=== PATIENT | female | born 1965 | race Caucasian/White ===

== ENCOUNTER → 2017-03-20 | Outpatient (CLI) | payer BC ==
--- NOTE | 2017-03-21 11:40 | MM ---
Reason for exam: screening (asymptomatic). Last mammogram was performed 1 year and 6 months ago. History: Patient is postmenopausal. Physical Findings: A clinical breast exam by your physician is recommended on an annual basis and results should be correlated with mammographic findings. MG Screening Mammo w CAD Bilateral CC and MLO view(s) were taken. Prior study comparison: October 03, 2015, bilateral MG screening mammo w CAD. October 11, 2013, bilateral digital screening mammo w/CAD. The breast tissue is heterogeneously dense. This may lower the sensitivity of mammography. No significant changes when compared with prior studies. ASSESSMENT: Negative, BI-RAD 1 RECOMMENDATION: Routine screening mammogram of both breasts in 1 year.
== END | disposition home or self-care (01) ==
LOC: RADMAMWWP 15:43
PROVIDERS: ATTEND Internal Medicine
DX: Z12.31 Encounter for screening mammogram for malignant neoplasm of breast (principal)

== ENCOUNTER → 2021-02-13 | Outpatient (CLI) | payer OTHER ==
--- NOTE | 2021-02-14 13:52 | MM ---
Reason for exam: screening (asymptomatic). Last mammogram was performed 3 years and 11 months ago. History: Patient is postmenopausal. Took hormonal contraceptives for 11 years. Physical Findings: A clinical breast exam by your physician is recommended on an annual basis and results should be correlated with mammographic findings. MG 3D Screening Mammo W/Cad Bilateral CC and MLO view(s) were taken. Prior study comparison: March 20, 2017, bilateral MG screening mammo w CAD. October 03, 2015, bilateral MG screening mammo w CAD. The breast tissue is heterogeneously dense. This may lower the sensitivity of mammography. No significant changes when compared with prior studies. ASSESSMENT: Negative, BI-RAD 1 RECOMMENDATION: Routine screening mammogram of both breasts in 1 year.
== END | disposition home or self-care (01) ==
LOC: RADMAMWWP 16:37
PROVIDERS: ATTEND Internal Medicine
DX: Z12.31 Encounter for screening mammogram for malignant neoplasm of breast (principal); Z78.0 Asymptomatic menopausal state
CPT/HCPCS: 77063; 77067

== ENCOUNTER → 2022-07-02 | Outpatient (CLI) | payer OTHER ==
--- NOTE | 2022-07-02 09:16 | US ---
EXAMINATION TYPE: US pelvis complete transvag DATE OF EXAM: 07/02/2022 COMPARISON: NONE CLINICAL HISTORY: 56-year-old female Pain TECHNIQUE: Transvaginal (TV) and Transabdominal (TA) . FINDINGS: EXAM MEASUREMENTS: Uterus: 8.5 x 2.7 x 4.2 cm Endometrial Stripe: .7 cm 1. Uterus: Anteverted and otherwise wnl there is some tiny cervical nabothian cysts are noted. 2. Endometrium: Borderline thickening. 3. Right Ovary: Obscured by overlying bowel gas 4. Left Ovary: Obscured by overlying bowel gas 5. Bilateral Adnexa: wnl 6. Posterior cul-de-sac: wnl IMPRESSION: 1. Borderline thickening of the endometrial stripe (7 mm) for a postmenopausal female. This may be no rmal in the absence of postmenopausal bleeding. Consider follow-up in 3 months to reassess. 2. Unable to visualize either ovary.
--- NOTE | 2022-07-02 09:28 | US ---
EXAMINATION TYPE: US abdomen complete DATE OF EXAM: 07/02/2022 COMPARISON: NONE CLINICAL HISTORY: 56-year-old female R10.2 PELVIC AND PERINEAL PAIN. TECHNIQUE: Multiple sonographic images of the abdomen are obtained. FINDINGS: EXAM MEASUREMENTS: Liver Length: 13.8 cm Gallbladder Wall: .3 cm CBD: .3 cm Spleen: 11.1 cm Right Kidney: 10.8 x 3.9 x 4.3 cm Left Kidney: 10.2 x 4.8 x 4.0 cm Pancreas: Only a small portion of the pancreatic neck is seen. The remainder is obscured by bowel ga s shadowing. Liver: Echogenic with increased attenuation. No focal lesion is seen. Gallbladder: No stones seen. No abnormal distention, wall thickening, or surrounding fluid. Evidence for sonographic Valadez's sign: No CBD: wnl Spleen: wnl Right Kidney: wnl Left Kidney: wnl Upper IVC: wnl Abd Aorta: wnl IMPRESSION: 1. At least moderate hepatic steatosis. Correlate with LFTs, lipid profile, and patient risk factors. 2. No gallstones or biliary ductal dilatation.
== END | disposition home or self-care (01) ==
LOC: RADUSWWP 07:59
PROVIDERS: ATTEND Internal Medicine
DX: K76.0 Fatty (change of) liver, not elsewhere classified (principal); R93.89 Abnormal findings on diagnostic imaging of other specified body structures; Z78.0 Asymptomatic menopausal state
CPT/HCPCS: 76700; 76830; 76856

== ENCOUNTER → 2022-07-02 | Outpatient (CLI) | payer OTHER ==
--- NOTE | 2022-07-03 07:36 | MM ---
Reason for Exam: Screening (asymptomatic). Last mammogram was performed 1 year(s) and 5 month(s) ago. Patient History: Menarche at age 8. First Full-Term at age 27. Postmenopausal. Patient has history of breast feeding. Patient used Hormonal Contraceptives for 11 years. Risk Values: Mary 5 year model risk: 1.6%. NCI Lifetime model risk: 9.3%. Prior Study Comparison: 10/03/2015 Bilateral Screening Mammogram, [facility]. 03/20/2017 Bilateral Screening Mammogram, [facility]. 02/13/2021 Bilateral Screening Mammogram, [facility]. Tissue Density: The breast tissue is heterogeneously dense. This may lower the sensitivity of mammography. Findings: Analyzed By CAD. There is no suspicious group of microcalcifications or new suspicious mass in either breast. Overall Assessment: Negative, BI-RAD 1 Management: Screening Mammogram of both breasts in 1 year. A clinical breast exam by your physician is recommended on an annual basis and results should be correlated with mammographic findings. [facility] will attempt to contact patient to return for supplemental views and ultrasound if indicated. Electronically signed and approved by: William Bansal DO
== END | disposition home or self-care (01) ==
LOC: RADMAMWWP 07:43
PROVIDERS: ATTEND Internal Medicine
DX: Z12.31 Encounter for screening mammogram for malignant neoplasm of breast (principal); Z78.0 Asymptomatic menopausal state
CPT/HCPCS: 77063; 77067

== ENCOUNTER → 2022-11-12 | Outpatient (CLI) | payer OTHER ==
--- NOTE | 2022-11-12 16:22 | XR ---
EXAMINATION TYPE: XR foot complete RT DATE OF EXAM: 11/12/2022 3:46 PM INDICATION: Patient age:Female; 57 years old; Reason for study: [id number] RT FOOT PAIN; [facility]. COMPARISON: None TECHNIQUE: The right foot was examined in the AP, oblique, and lateral projections. FINDINGS: No evidence of any acute osseous pathology. No evidence of soft tissue swelling. Joints are preserve d. Scattered joint space narrowing osteophytes of the joints of the foot. Calcaneal plantar spurring and Achilles enthesophyte is present. Accessory ossicle next to the cuboid . IMPRESSION: No evidence of acute fracture. Calcaneal plantar spurring correlate for plantar fasciitis.
== END | disposition home or self-care (01) ==
LOC: RADXRYALE 15:24
PROVIDERS: ATTEND Internal Medicine
DX: M77.31 Calcaneal spur, right foot (principal); M72.2 Plantar fascial fibromatosis

== ENCOUNTER → 2024-01-09 | Outpatient (CLI) | payer OTHER ==
--- NOTE | 2024-01-11 12:57 | MM ---
Reason for Exam: Screening (asymptomatic). Last mammogram was performed 1 year(s) and 6 month(s) ago. Patient History: Menarche at age 8. First Full-Term at age 27. Postmenopausal. Patient has history of breast feeding. Patient used Hormonal Contraceptives for 11 years. Risk Values: Mary 5 year model risk: 1.8%. NCI Lifetime model risk: 8.9%. Prior Study Comparison: 10/03/2015 Bilateral Screening Mammogram, [facility]. 03/20/2017 Bilateral Screening Mammogram, [facility]. 02/13/2021 Bilateral Screening Mammogram, [facility]. 07/02/2022 Bilateral MG 3D screening mammo w/cad, [facility]. Tissue Density: The breasts are heterogeneously dense, which may obscure small masses. Findings: Analyzed By CAD. The pattern is symmetrical. No suspicious groups of microcalcifications, spiculated or lobular masses, architectural distortion or other secondary signs of malignancy are mammographically apparent. Overall Assessment: Benign, BI-RAD 2 Management: Screening Mammogram of both breasts in 1 year. A negative mammogram report should not preclude additional follow up of suspicious palpable abnormalities. Patient should continue monthly self breast exam. A clinical breast exam by your physician is recommended on an annual basis and results should be correlated with mammographic findings. Note on Mary scores and lifetime risk: 1. A Amry score greater than 3% is considered moderate risk. If this is the case, consider specialist referral to assess eligibility for a risk reducing agent. 2. If overall lifetime risk for the development of breast cancer is 20% or higher, the patient may qualify for future screening with alternating mammogram and breast MRI. Electronically signed and approved by: Kashmir Caputo D.O. Radiologis
== END | disposition home or self-care (01) ==
LOC: RADMAMWWP 07:44
PROVIDERS: ATTEND Internal Medicine
DX: Z12.31 Encounter for screening mammogram for malignant neoplasm of breast (principal); R92.333 Mammographic heterogeneous density, bilateral breasts; Z78.0 Asymptomatic menopausal state
CPT/HCPCS: 77063; 77067

== ENCOUNTER → 2024-04-23 | Day surgery (SDC) | payer OTHER ==
[~2024-04-23] MED LIST: PROPOFOL 10 MG/ML 20 ML VIAL IV ONE
[2024-04-23] MEDS: IV FLUID CONTINUATION 1,000 ML IV ONE (08:08)
[2024-04-23] MEDS: LACTATED RINGERS 1,000 ML IV SCH (08:08)
[2024-04-23 08:12] VITALS: TEMP 98.2
--- NOTE | 2024-04-23 08:50 | P.PCN ---
Date of Procedure: 04/23/24 Procedure(s) Performed: BRIEF HISTORY: Patient is a 58-year-old pleasant white female scheduled for an elective colonoscopy as a part of screening for colon cancer. PROCEDURE PERFORMED: Colonoscopy. PREOPERATIVE DIAGNOSIS: Screening for colon cancer. IV sedation per Anesthesia. PROCEDURE: After informed consent was obtained, the patient, was brought into the endoscopy unit. IV sedation was administered by Anesthesia under continuous monitoring. Digital rectal examination was normal. Initially the Olympus CF-160 flexible video colonoscope was then inserted in the rectum, gradually advanced into the cecum without any difficulty. Careful examination was performed as the scope was gradually being withdrawn. Ileocecal valve and the appendiceal orifice were visualized and appeared normal. Prep was excellent. Mucosa of the cecum, ascending colon, transverse colon, descending colon, sigmoid colon, and rectum appeared normal. Katter sigmoid diverticulosis. Retroflexion was performed in the rectum and no lesions were seen. The patient tolerated the procedure well. IMPRESSION: Normal-appearing colon from rectum to cecum no evidence of colorectal neoplasia. Scattered sigmoid diverticulosis. RECOMMENDATIONS: Findings of this examination were discussed with the patient as well as her family. She was advised to have a repeat screening colonoscopy in 10 years..
[2024-04-23 08:55] VITALS: RESP 16
[2024-04-23 09:08] VITALS: BP 133/73; PULSE 76
== END ==
LOC: ORWHC2ENDO 07:30
PROVIDERS: ATTEND Internal Medicine Gastroenterology
DX: Z12.11 Encounter for screening for malignant neoplasm of colon (principal); K57.30 Diverticulosis of large intestine without perforation or abscess without bleeding; F32.A Depression, unspecified; G89.4 Chronic pain syndrome; Z88.0 Allergy status to penicillin
CPT/HCPCS: 45378; J2704

== ENCOUNTER → 2024-05-06 | Outpatient (CLI) | payer OTHER ==
--- NOTE | 2024-05-06 23:08 | MR ---
EXAMINATION TYPE: MR shoulder RT wo con DATE OF EXAM: 05/06/2024 COMPARISON: None. HISTORY: Right shoulder pain, limited ROM, injured Sept 2023. TECHNIQUE: Multiplanar, multisequence imaging of the right shoulder is performed without contrast. FINDINGS: Rotator Cuff: Full-thickness retracted tears of the supraspinatus and infraspinatus tendons with stum p retraction to the level of the distal clavicle. Acromioclavicular Joint: Moderate narrowing with mild to moderate capsular hypertrophy Mild spurring. Glenohumeral Joint: Large size joint effusion. High positioned humeral head. Narrowing is identified. No significant spurring. [place]-Sachs type deformity is felt present. Labrum: The labrum appears grossly intact given limitation of non-arthrogram study. Biceps Tendon: The long head of biceps is in normal location within bicipital groove. Bone marrow signal: A few tiny subchondral cyst involving the superolateral aspect of the humeral hea d. Other: No additional significant abnormality is appreciated. IMPRESSION: Full-thickness retracted tears of supraspinatus and infraspinatus tendons with large glenohumeral kailyn nt effusion. High positioned humeral head raises concern for underlying instability. [facility], Workstation: [email or web address], 05/06/2024 11:05 PM
== END | disposition home or self-care (01) ==
LOC: RADMRIMAIN 16:07
PROVIDERS: ATTEND Orthopaedic Surgery
DX: S46.091D Other injury of muscle(s) and tendon(s) of the rotator cuff of right shoulder, subsequent encounter (principal); M19.011 Primary osteoarthritis, right shoulder; M75.51 Bursitis of right shoulder; M40.202 Unspecified kyphosis, cervical region; M48.02 Spinal stenosis, cervical region; M75.121 Complete rotator cuff tear or rupture of right shoulder, not specified as traumatic

== ENCOUNTER → 2024-05-25 | Outpatient (CLI) | payer OTHER ==
--- NOTE | 2024-05-25 13:49 | MR ---
EXAMINATION TYPE: MR cervical spine wo con DATE OF EXAM: 05/25/2024 12:46 PM COMPARISON: None. CLINICAL INDICATION: Female, 58 years old with history of M54.12 Cervicalgia, Neck pain with RUE radi culopathy. TECHNIQUE: Multiplanar, multisequence images of the cervical spine were acquired without contrast. FINDINGS: No craniocervical junction abnormality, predental space widening, or prevertebral soft tissue swellin g. There is reversal of the normal cervical lordosis. Preserved alignment. There is mild to moderate degenerative disc disease mid to lower cervical spine particularly at C5-C6 where there is also edematous Modic type I endplate change towards right. Disc osteophyte complexes C4-C5, C5-C6, C6-C7. Changes result in mild spinal canal stenosis at C5-C6 with abutment and slight flattening of the vent ral cord and AP canal dimension narrowed down to 7.5 mm. Mild overall narrowing of the spinal canal C4-C5 C6-C7 with impression on the ventral thecal sac. Otherwise, no canal compromise. No suspicious bone marrow replacement. There is moderate to advanced multilevel facet and uncovertebral joint arthropathy. Changes result in mild right neuroforaminal stenosis at C3-C4. Moderate on both sides at C5-C6. Mild neuroforaminal stenosis on both sides at C6-C7. Normal signal intensity of the cervical spinal cord. IMPRESSION: 1. [id number] degenerative disc disease mid to lower cervical spine especially at C5-C6 where t here is edematous Modic type I endplate change towards the right. 2. Mild spinal canal stenosis at C5-C6 from disc osteophyte complex which abuts and slightly flattens the ventral cord. AP canal dimension 7.5 mm. No cord compression or brandon canal compromise. 3. Hypertrophic facet and uncovertebral joint arthropathy throughout with reversal of the normal cerv ical lordosis. 4. Mild neuroforaminal stenoses as outlined above. Moderate neuroforaminal narrowing on both sides at C5-C6 [facility], , 05/25/2024 1:47 PM
== END | disposition home or self-care (01) ==
LOC: RADMRIMAIN 11:44
PROVIDERS: ATTEND Orthopaedic Surgery
DX: M54.12 Radiculopathy, cervical region (principal); M25.511 Pain in right shoulder; M19.011 Primary osteoarthritis, right shoulder; S46.091D Other injury of muscle(s) and tendon(s) of the rotator cuff of right shoulder, subsequent encounter; M54.2 Cervicalgia; M48.02 Spinal stenosis, cervical region; M40.202 Unspecified kyphosis, cervical region; M75.51 Bursitis of right shoulder; M25.78 Osteophyte, vertebrae; M47.812 Spondylosis without myelopathy or radiculopathy, cervical region; R60.9 Edema, unspecified
CPT/HCPCS: 72141